=== PATIENT | male | born 2000 | race Caucasian/White ===

== ENCOUNTER 2019-04-20 14:25 | Emergency (ER) | payer OTHER ==
[~2019-04-20] VITALS: Ht 182.9 cm; Wt 99.1 kg
[2019-04-20 14:26] VITALS: BP 137/86
[2019-04-20] MEDS ORDERED: IBUP-1114 PO (14:31)
[2019-04-20] MEDS ORDERED: AUGM875T28 PO (15:05)
[2019-04-20] MEDS ORDERED: ACET-683 PO (20:02)
== END 2019-04-20 15:19 | disposition home or self-care (01) ==
LOC: M ED 14:25
DX: L05.91 Pilonidal cyst without abscess (principal); Z79.1 Long term (current) use of non-steroidal anti-inflammatories (NSAID)

== ENCOUNTER 2019-04-20 19:52 | Emergency (ER) | payer OTHER ==
[~2019-04-20] VITALS: Ht 182.9 cm; Wt 97.3 kg
[~2019-04-20 19:52] MED LIST: AUGM875T28 PO; IBUP-1114 PO
[2019-04-20] MEDS ORDERED: ACET-683 PO (20:02)
[2019-04-20] MEDS ORDERED: LIDOCAINE 1% MDV 20ML VIAL SC ONE (21:00)
[2019-04-20 21:41] VITALS: BP 131/66
== END 2019-04-20 21:45 | disposition home or self-care (01) ==
LOC: M ED 19:52
DX: L05.01 Pilonidal cyst with abscess (principal); Z79.1 Long term (current) use of non-steroidal anti-inflammatories (NSAID); L05.91 Pilonidal cyst without abscess